=== PATIENT | female | born 1995 | race Caucasian/White ===

== ENCOUNTER 2019-10-05 20:45 | Emergency (ER) | payer OTHER ==
[2019-10-05] MEDS ORDERED: HYDROcodone/Acetaminophen 5/325 mg Tablet ONE (21:14)
[2019-10-05] MEDS ORDERED: Sulfameth/Trimethoprim DS 800-160mg TAB ONE (21:14)
[2019-10-05] MEDS ORDERED: Cephalexin 500 MG CAP ONE (21:14)
== END 2019-10-05 21:24 | disposition home or self-care (01) ==
LOC: MADERS 20:45
DX: L02.01 Cutaneous abscess of face (principal); E03.9 Hypothyroidism, unspecified; Z79.899 Other long term (current) drug therapy
CPT/HCPCS: 99283

== ENCOUNTER 2022-12-17 09:13 | Outpatient (CLI) | payer OTHER ==
[2022-12-17 09:42] LABS: BHCG - Serum Negative (NEGATIVE); Pregs Control Background? CLEAR/WHITE (CLR/WHITE); Pregs Control Bar Appear? YES (CONTROL BAR)
== END 2022-12-17 09:14 | disposition home or self-care (01) ==
LOC: MADLAB 09:13
PROVIDERS: ATTEND Pathology Anatomic Pathology & Clinical Pathology
DX: Z00.00 Encounter for general adult medical examination without abnormal findings (principal)
CPT/HCPCS: 36415; 84703